=== PATIENT | male | born 1975 | race Caucasian/White ===

== ENCOUNTER 2018-06-11 15:11 | Emergency (ER) | payer OTHER ==
[~2018-06-11] VITALS: Ht 175.3 cm; Wt 91.7 kg
[2018-06-11 15:18] VITALS: BP 179/127
[2018-06-11] MEDS ORDERED: PROPARACAINE OPHTH 0.5%, 15ML ONE (15:26)
[2018-06-11] MEDS ORDERED: FLUORESCEIN OPHTHALMIC 1 MG STRIP ONE (15:27)
[2018-06-11] MEDS ORDERED: PROPARACAINE OPHTH 0.5%, 15ML RIGHTEYE ONE (15:30)
[2018-06-11] MEDS ORDERED: FLUORESCEIN OPHTHALMIC 1 MG STRIP RIGHTEYE ONE (15:30)
[2018-06-11] MEDS ORDERED: PLEASE ENTER ALLERGIES MC SCH (15:30)
== END 2018-06-11 16:25 | disposition home or self-care (01) ==
LOC: ED 16:19
DX: S05.01XA Injury of conjunctiva and corneal abrasion without foreign body, right eye, initial encounter (principal); X58.XXXA Exposure to other specified factors, initial encounter; Y93.89 Activity, other specified; Y92.89 Other specified places as the place of occurrence of the external cause; Y99.8 Other external cause status
CPT/HCPCS: 99283